=== PATIENT | female | born 1990 | race Asian ===

== ENCOUNTER 2018-09-26 05:43 | Emergency (ER) | payer OTHER ==
[2018-09-26 06:16] LABS: Urine Bacteria FEW /hpf (None Seen); Urine Blood Negative /uL (Negative); Urine Specific Gravity 1.004 (1.001-1.035); Urine WBC 1 /hpf (0 - 5)
[2018-09-26 06:22] LABS: BUN/Creatinine Ratio 8.3; Calcium 8.5 mg/dL (8.5-10.1)
[2018-09-26 06:28] LABS: Hematocrit 44.7 % (36.0-46.0); Mean Corpuscular Hgb Conc. 29.1 g/dL (32.0-36.0); Red Blood Cells 4.27 10^6/uL (4.0-5.20)
[2018-09-26 06:30] LABS: Mean Corpuscular Hemoglobin 30.5 pg (28.0-32.0); Mean Corpuscular Volume 104.6 fL (80.0-100.0); Platelet Count (auto) 283 10^3/uL (140-450); Red Cell Distribution Width 16.1 % (11.8-14.3)
[2018-09-26 06:31] VITALS: BP 0/0
[2018-09-26 06:31] LABS: Bilirubin, Total 0.3 mg/dL (0.2-1.0); Total Protein 6.5 g/dL (6.4-8.2)
[2018-09-26 06:34] LABS: Amphetamine Screen, Urine NEGATIVE (NEGATIVE); Barbiturate Scree,Urine NEGATIVE (NEGATIVE); Benzodiazephine Screen, Urine POSITIVE (NEGATIVE); Cannabinoid Screen, Urine POSITIVE (NEGATIVE); Cocaine Screen, Urine POSITIVE (NEGATIVE); Opiate Scree,Urine NEGATIVE (NEGATIVE); Phencyclidine Screen, Urine NEGATIVE (NEGATIVE)
[2018-09-26 06:39] LABS: Basophils % (manual) 0 (0.0-2.0); Blast Cells 0; Eosinophils % (manual) 0 (0-7); Metamyelocytes % 0; Myelocytes % 0; Promyelocytes % 0; Reactive Lymphocytes 0
[2018-09-26 06:52] LABS: INR 1.2 (0.9-1.15); Partial Thromboplastin Time 49.6 sec (23.78-33.04); Prothrombin Time 12.7 sec (9.27-12.13)
[2018-09-26 07:15] LABS: Magnesium 4.1 mg/dL (1.6-2.6); Potassium 7.7 mmol/L (3.5-5.1)
[2018-09-26 12:41] LABS: Band Neutrophils % (manual) 7; Lymphocytes % (manual) 40 (10.0-50.0)
[2018-09-26 12:42] LABS: Monocytes % (manual) 8 (0-12)
[2018-09-27 13:56] LABS: Hepatitis B Surface Antibody Positive
[2018-09-27 17:05] LABS: Hepatitis B Surface Antigen Negative (Negative)
== END 2018-09-26 10:20 | disposition expired ==
LOC: ER 05:43
DX: I46.9 Cardiac arrest, cause unspecified (principal)
CPT/HCPCS: 36415; 51702; 80053; 80307; 81001; 83735; 84484; 85007; 85027; 85379; 85610; 85730; 86703; 86706; 86803; 87340; 92950